=== PATIENT | female | born 1955 | race Caucasian/White ===

== ENCOUNTER 2018-10-02 06:09 | Day surgery (SDC) | payer BC ==
[2018-09-26 12:29] VITALS: BMI 32.5
[2018-10-02] MEDS ORDERED: MIDAZOLAM HCL 2 MG/2 ML SINGLE DOSE VIAL ONE (07:26)
--- NOTE | 2018-10-02 07:42 | HP ---
Admitting History and Physical - Primary Care Physician PCP: Hortencia Fonseca - Admission Chief Complaint: 63 yo P2 with Endometrial polyp on biopsy - Advance Directives Advance Directives: Yes: Health Care Proxy - Smoking History Smoking history: Former smoker Have you smoked in the past 12 months: No If you are a former smoker, when did you quit?: 20yrs - Alcohol/Substance Use Hx Alcohol Use: Yes (occas) Home Medications - Allergies Allergies/Adverse Reactions: Allergies Allergy/AdvReac Type Severity Reaction Status Date / Time Penicillins Allergy "passed Verified 09/26/18 12:30 out as a child-?heart stopped" - Home Medications Home Medications: Ambulatory Orders Escitalopram Oxalate [Lexapro -] 10 mg PO DAILY 09/26/18 Physical Examination Vital Signs: Vital Signs Temperature 97.7 F 10/02/18 06:28 Pulse Rate 59 L 10/02/18 06:28 Respiratory Rate 20 10/02/18 06:28 Blood Pressure 129/91 10/02/18 06:28 O2 Sat by Pulse Oximetry (%) 98 10/02/18 06:28
[2018-10-02] MEDS ORDERED: DEXAMETHASONE SOD PHOSPHATE 4 MG/1 ML VIAL ONE (07:45)
[2018-10-02] MEDS ORDERED: LIDOCAINE HCL/PF 2% SDV 5ML VIAL ONE (07:46)
[2018-10-02] MEDS ORDERED: PROPOFOL 20 ML ONE (07:47)
[2018-10-02] MEDS ORDERED: GLYCOPYRROLATE 0.2 MG/1 ML VIAL ONE ×2 (08:03→08:04)
[2018-10-02] MEDS ORDERED: oxyCODONE HCL 5 MG TABLET PO PRN ×2 (08:25→08:50)
[2018-10-02] MEDS ORDERED: ONDANSETRON 4 MG/2 ML VIAL IVPUSH PRN ×2 (08:25→08:50)
[2018-10-02] MEDS ORDERED: LACTATED RINGERS SOLUTION 1,000 ML IV SCH (08:30)
--- NOTE | 2018-10-02 08:47 | OP ---
Operative Note - Note: Operative Date: 10/02/18 Pre-Operative Diagnosis: 63yo P2 with Endometrial polyp on Endometrial biopsy Operation: Hysteroscopy, Polypectomy, D&C Findings: three claritza Left posterior wall polyps Post-Operative Diagnosis: Same as Pre-op Surgeon: Hortencia Fonseca Anesthesiologist/[employer] TE[employer]ER: Akin Burroughs Anesthesia: MAC Estimated Blood Loss (mls): 10 Drains & Tubes with Location: fluid deficit 400cc Drains, Volume Out (mls): 100 Fluid Volume Replaced (mls): 600 Operative Report Dictated: Yes
[2018-10-02] MEDS ORDERED: IBUPROFEN 800 MG/8 ML IJ IVPB PRN (08:50)
[2018-10-02] MEDS ORDERED: IBUPROFEN 600 MG TABLET (FP) PO PRN (08:50)
[2018-10-02] MEDS ORDERED: ELECTROLYTE-148 SOLN 1,000 ML IV SCH (09:00)
[2018-10-02 09:21] VITALS: TEMP 97.5
[2018-10-02 11:01] VITALS: BP 118/60; PULSE 71
--- NOTE | 2018-10-03 06:58 | OP ---
DATE OF OPERATION: 10/02/2018 PREOPERATIVE DIAGNOSIS: A 63-year-old para 2 with endometrial polyp and endometrial biopsy, thickened endometrium. OPERATION: Hysteroscopy, polypectomy, dilation and curettage. FINDINGS: Three sessile left posterior wall polyps. POSTOPERATIVE DIAGNOSIS: A 63-year-old para 2 with endometrial polyp and endometrial biopsy, thickened endometrium. SURGEON: Hortencia Fonseca MD ANESTHESIOLOGIST: Akin Burroughs MD ANESTHESIA: MAC. DESCRIPTION OF THE OPERATIVE PROCEDURE: After assuring informed consent, patient was brought to the operating room where she was placed in dorsal lithotomy position. Vagina and perineum were cleaned with Betadine and draped in a sterile fashion. The Reyes retractor was placed vaginally. Anterior cervical lip was visualized and grasped with single-tooth tenaculum. Cervix was dilated with increasing in size dilators to accommodate 6.3 mm hysteroscope. Hysteroscope was placed into the uterus without any difficulty. Posterior wall polyps were visualized. Resectoscope was introduced through the port and the hysteroscopic resection of the polyp was performed by using Symphion resectoscope. Excellent hemostasis was noted. Instrument was removed from the uterus. All other instruments were removed from uterus and vagina after sharp curette used to remove rest of the endometrial tissue. Excellent hemostasis was noted. Estimated blood loss was 10 mL. Patient put out 100 mL of urine and received 600 mL of IV fluids. Fluid deficit was 400 mL. Sponge and instrument counts were correct x2. Patient was brought to the recovery room in stable condition. Aurea [id number]
--- NOTE | 2018-10-03 20:24 | PATH ---
Surgical Pathology Report Patient Name: ISSAC HOWARD [facility]. Rec. #: [id number] /Age/Gender: 1955 (Age: 63) / F Account: [id number] Location: [facility] Taken: 10/02/2018 Received: 10/02/2018 Reported: 10/03/2018 Physicians: Hortencia Fonseca M.D. Specimen(s) Received ENDOMETRIAL POLYP Clinical History Endometrial polyp Final Diagnosis ENDOMETRIAL POLYP, EXCISION: ENDOMETRIAL POLYP, FRAGMENTS. SEPARATE FRAGMENTS OF SMOOTH MUSCLE BUNDLES, MAY REPRESENT SUBMUCOSAL LEIOMYOMA, SUGGEST CLINICAL CORRELATION. Electronically Signed Karla Pickering M.D. Gross Description Received in formalin labeled "endometrial polyp," is a 2.4 x 2.2 x 0.3 cm aggregate of velez soft tissue fragments. The formalin is filtered and the specimen is entirely submitted in one cassette. DL/10/02/201810/02/2018
== END 2018-10-02 10:55 | disposition home or self-care (01) ==
LOC: JASU-SURG 06:09
PROVIDERS: ATTEND Obstetrics & Gynecology
PROC: 0UJD8ZZ Inspection of Uterus and Cervix, Via Natural or Artificial Opening Endoscopic (ICD-10-PCS; 2018-10-02)
PROC: 0UB97ZX Excision of Uterus, Via Natural or Artificial Opening, Diagnostic (ICD-10-PCS; principal; 2018-10-02 07:30)
PROC: 0UDB7ZX Extraction of Endometrium, Via Natural or Artificial Opening, Diagnostic (ICD-10-PCS; 2018-10-02 07:30)
DX: N84.0 Polyp of corpus uteri (principal); N85.00 Endometrial hyperplasia, unspecified
CPT/HCPCS: 87086; 88305-TC; 94760